=== PATIENT | female | born 1980 | race Caucasian/White ===

== ENCOUNTER → 2018-07-01 | Outpatient (CLI) | payer BC ==
[~2018-07-01] MED LIST: ANXIETY MED; BIRTH CONTROL PILLS; PERCOCET 325 MG1 TA2 PO; PHENTERMINE15 MG PO; SYNTHROID0.075 MG/T PO; ZOFRAN ODT8 MG PO
== END ==
LOC: MC.RAD 11:30
DX: Z12.31 Encounter for screening mammogram for malignant neoplasm of breast (principal)

== ENCOUNTER 2019-10-11 21:25 | Emergency (ER) | payer BC ==
[~2019-10-11] VITALS: Ht 170.2 cm; Wt 100.0 kg
[2019-10-11 22:29] VITALS: TEMP 98.9
[2019-10-11 23:12] LABS: COLLECTION METHOD CLEAN CATCH
[2019-10-11 23:15] LABS: BASO # 0.1 (0.0-0.2); BASO % 0.7 % (0.0-2.0); EOS # 0.1 (0.0-0.7); EOS % 1.3 % (0-4.0); GRAN # 7.7 (1.4-6.5); GRAN % 70.3 % (42.2-75.2); HEMATOCRIT 43.7 % (37.0-47.0); LYMPH # 2.2 (1.2-3.4); LYMPH % 19.8 % (20.0-51.0); MEAN CELL VOLUME 89 fl (80.0-100.0); MEAN CORPUSCULAR HEMOGLOBIN 29 pg (27.0-31.0); MEAN CORPUSCULAR HGB CONC 32 g/dl (33.0-37.0); MEAN PLATELET VOLUME 10.2 fl (7.4-10.4); MONO # 0.8 (0.1-0.6); MONO % 7.6 % (1.7-9.3); PLATELET COUNT 341 K/mm3 (130-400); REDCELL DISTRIBUTION WIDTH-CV 14.5 % (11.5-14.5)
[2019-10-11 23:20] LABS: AMORPHOUS CRYSTAL Present /uL; MUCOUS Present /lpf; PH 6 (5-8); SQUAMOUS EPITHELIAL 0-2 /hpf; URINE APPEARANCE Hazy; URINE BACTERIA Rare /hpf; URINE BILIRUBIN Negative (NEGATIVE); URINE BLOOD Negative (NEGATIVE); URINE COLOR Yellow; URINE GLUCOSE Negative (NEGATIVE); URINE KETONE Negative (NEGATIVE); URINE LEUKOCYTE ESTERASE Negative (NEGATIVE); URINE NITRATE Negative (NEGATIVE); URINE PROTEIN(semi-quant) Negative (NEGATIVE); URINE RBC 0-2 /hpf
[2019-10-11 23:26] LABS: ALBUMIN 4.5 gm/dL (3.5-5.0); BILIRUBIN,TOTAL 0.3 mg/dL (0.0-1.0); CALCIUM 9.5 mg/dL (8.4-10.2); CREATININE, serum 0.92 (0.52-1.25); POTASSIUM 3.6 mmol/L (3.4-5.0); TOTAL PROTEIN 8.3 gm/dL (6.4-8.2)
[2019-10-12] MEDS ORDERED: CELEXA40 MG PO (00:56)
[2019-10-12] MEDS ORDERED: SYNTHROID0.2 MG/TAB PO (00:57)
[2019-10-12] MEDS ORDERED: TOPAMAX 25MG25 M1 PO (00:57)
[2019-10-12 01:20] VITALS: BP 110/65; PULSE 65
== END 2019-10-12 01:18 | disposition home or self-care (01) ==
LOC: COL.ER 21:25
PROVIDERS: Emergency Medicine
DX: R10.31 Right lower quadrant pain (principal); Z98.890 Other specified postprocedural states
CPT/HCPCS: J1170; J1885; J2405; J7030; Q9967

== ENCOUNTER → 2020-02-14 | Outpatient (CLI) | payer BC ==
[~2020-02-14] MED LIST changes: +CELEXA40 MG PO; +SYNTHROID0.2 MG/TAB PO; +TOPAMAX 25MG25 M1 PO
== END ==
LOC: MC.RAD 10:57
DX: Z12.31 Encounter for screening mammogram for malignant neoplasm of breast (principal)

== ENCOUNTER → 2020-02-22 | Outpatient (CLI) | payer BC | LOC: MC.RAD 07:00 | DX: N64.89 Other specified disorders of breast (principal) ==

== ENCOUNTER 2020-12-27 21:06 | Emergency (ER) | payer OTHER, BC ==
[~2020-12-27] VITALS: Ht 170.2 cm; Wt 90.9 kg
[2020-12-27 21:18] VITALS: TEMP 97.7
[2020-12-28] MEDS ORDERED: FLEXERIL 1010 MG/TAB PO (00:22)
[2020-12-28] MEDS ORDERED: NAPROSYN500 MG PO (00:22)
[2020-12-28 00:30] VITALS: BP 144/70; PULSE 78
== END 2020-12-28 00:30 | disposition home or self-care (01) ==
LOC: COL.ER 21:06
DX: S16.1XXA Strain of muscle, fascia and tendon at neck level, initial encounter (principal); S20.20XA Contusion of thorax, unspecified, initial encounter; E07.9 Disorder of thyroid, unspecified; Z88.5 Allergy status to narcotic agent; Z79.890 Hormone replacement therapy; V49.40XA Driver injured in collision with unspecified motor vehicles in traffic accident, initial encounter

== ENCOUNTER → 2021-03-28 | Outpatient (CLI) | payer BC ==
[~2021-03-28] MED LIST changes: +FLEXERIL 1010 MG/TAB PO; +NAPROSYN500 MG PO
== END ==
LOC: MC.RAD 11:25
DX: Z12.31 Encounter for screening mammogram for malignant neoplasm of breast (principal)

== ENCOUNTER → 2023-06-05 | Outpatient (CLI) | payer BC | LOC: MC.RAD 07:01 | DX: Z12.31 Encounter for screening mammogram for malignant neoplasm of breast (principal) ==